=== PATIENT | male | born 1950 | race Caucasian/White ===

== ENCOUNTER 2022-12-05 13:40 | Emergency (ER) | payer OTHER ==
[~2022-12-05] VITALS: Ht 185.4 cm; Wt 106.6 kg
[2022-12-05 13:45] VITALS: BP 182/100
--- NOTE | 2022-12-05 13:58 | NUR ---
72/M WALKED IN C.O DIZZINESS ONSET YESTERDAY MORNING WHEN GETTING OUT OF BED. DENIES LOC OR TRUAMA TO HEAD BUT REPORTS FALLING BACK ONTO BED. PT DENIES NAUSEA OR VOMITING. REPORTS HE HAS BEEN HAVING RIGHT EAR PAIN X 1 WK. AAO4, AMBULATORY, VITALS STABLE, EQUAL [employer] STRENGTH, NO FACIAL DROOP, NO SPEECH SLUR, SPEAK IN CLEAR FULL SENTENCES. PMH: DENIES
[2022-12-05] MEDS: NACL 0.9% 1,000 ML IV ONE (14:23)
[2022-12-05] MEDS: MECLIZINE 25 MG TAB PO ONE (14:23)
--- NOTE | 2022-12-05 14:43 | NUR ---
BLOOD DRAWN AND SENT TO LAB. IV ESTABLISHED TO RIGHT AC WITH 20G. PT WENT TO CT
[2022-12-05 14:49] LABS: BASOPHILS # (AUTO) 0.1 K/uL (0.00-0.22); EOSINOPHILS % (AUTO) 21.8 % (0.0-4.0); HEMATOCRIT 43.9 % (36-52); HEMOGLOBIN 15.1 g/dL (12.0-18.0); LYMPHOCYTES % (AUTO) 21.3 % (20.5-51.1); MEAN CORPUSCULAR HEMOGLOBIN 30 pg (27-31); MEAN CORPUSCULAR HGB CONC 34 g/dL (33-37); MEAN CORPUSCULAR VOLUME 86.3 fL (80-94); MONOCYTES # (AUTO) 0.7 K/uL (0.8-1.0); MONOCYTES % (AUTO) 7.8 % (1.7-9.3); NEUTROPHILS # (AUTO) 4.5 K/uL (1.8-7.7); NEUTROPHILS % (AUTO) 48.1 % (42.2-75.2); PLATELET COUNT (AUTO) 231 K/uL (140-450); RED BLOOD CELL COUNT(AUTO) 5.09 MIL/uL (4.20-6.10); WHITE BLOOD COUNT (AUTO) 9.4 K/uL (4.8-10.8)
--- NOTE | 2022-12-05 14:57 | NUR ---
PT BACK FROM CT
--- NOTE | 2022-12-05 15:00 | NUR ---
PT REPORTS NO LONGER DIZZY
[2022-12-05] MEDS ORDERED: CIPR10SU RIGHT EAR (15:04)
[2022-12-05] MEDS ORDERED: MECL-303 PO (15:04)
[2022-12-05 15:11] LABS: ALBUMIN 3.8 g/dL (3.4-5.0); ANION GAP 9.1 (8-16); CARBON DIOXIDE 31.2 mmol/L (21-32); POTASSIUM 4.3 mmol/L (3.5-5.1); TOTAL BILIRUBIN 0.3 mg/dL (0.0-1.0)
[2022-12-06] MEDS ORDERED: COROTSOL RIGHT EAR (15:11)
== END 2022-12-05 15:19 | disposition home or self-care (01) ==
LOC: MED 13:40
DX: H81.11 Benign paroxysmal vertigo, right ear (principal); Z79.899 Other long term (current) drug therapy
CPT/HCPCS: 36415; 70450; 80053; 85025; 96360; 99284; J7030; J8597